=== PATIENT | male | born 1960 ===

== ENCOUNTER 2024-04-22 15:12 | Emergency (ER) | payer MEDICARE ==
[~2024-04-22] VITALS: Ht 172.7 cm; Wt 73.2 kg
[~2024-04-22 15:12] MED LIST: CETI-450 PO; FOLI-130 PO; LEVE250T81 PO; MULT-1303 PO; OMEP20 PO; THIA100T80 PO
[2024-04-22 15:50] VITALS: TEMP 97.8
[2024-04-22 16:13] LABS: APPEARANCE,URINE CLEAR (CLEAR); BILIRUBIN,URINE NEGATIVE (NEGATIVE); COLOR,URINE COLORLESS (YELLOW); GLUCOSE, URINE (UA) NEGATIVE (NEGATIVE); LEUKOCYTE ESTERASE ,URINE NEGATIVE (NEGATIVE); NITRATE,URINE NEGATIVE (NEGATIVE); OCCULT BLOOD,URINE NEGATIVE (NEGATIVE); PROTEIN,URINE NEGATIVE (NEGATIVE); SPECIFIC GRAVITIY, URINE 1.005 (1.003-1.030); UROBILINOGEN,URINE <=1.0 mg/dL (<=1.0)
[2024-04-22 16:23] LABS: ALCOHOL, URINE DRUG SCREEN POSITIVE (NEGATIVE); AMPHET/METH SCREEN,URINE POSITIVE (NEGATIVE); BARBITURATE SCREEN, URINE NEGATIVE (NEGATIVE); BENZODIAZEPINES SCREEN,URINE POSITIVE (NEGATIVE); CANNABINOID SCREEN,URINE POSITIVE (NEGATIVE); COCAINE SCREEN,URINE NEGATIVE (NEGATIVE); METHADONE SCREEN, URINE NEGATIVE (NEGATIVE); OPIATE SCREEN,URINE NEGATIVE (NEGATIVE); PHENCYCLIDINE SCREEN,URINE NEGATIVE (NEGATIVE)
[2024-04-22 16:42] LABS: BASOPHILS % (AUTO) 0.7 % (0.0-2.0); EOSINOPHILS % (AUTO) 4.2 % (1.0-6.0); HEMATOCRIT 42.5 % (41-53); HEMOGLOBIN 13.9 g/dL (13.5-17.5); LYMPHOCYTES # (AUTO) 2.1 K/uL (1.0-4.8); LYMPHOCYTES % (AUTO) 22.9 % (22.0-44.0); MEAN CORPUSCULAR HEMOGLOBIN 32.9 pg (26.0-34.0); MEAN CORPUSCULAR HGB CONC 32.8 G/dL (31.0-37.0); MEAN CORPUSCULAR VOLUME 101 fL (80-100); MONOCYTES # (AUTO) 0.8 K/uL (0.1-1.0); MONOCYTES % (AUTO) 8.8 % (2.0-9.0); NEUTROPHILS # (AUTO) 5.8 K/uL (1.8-7.7); NEUTROPHILS % (AUTO) 63.4 % (40.0-70.0); PLATELET COUNT (AUTO) 246 K/uL (150-450); RED BLOOD CELL COUNT(AUTO) 4.23 MIL/uL (4.50-5.90); RED CELL DISTRIBUTION WIDTH 13.8 % (11.5-14.5); WHITE BLOOD COUNT (AUTO) 9.2 K/uL (4.5-11.0)
[2024-04-22 16:54] LABS: ANION GAP 13 mmol/L (8-16); CALCIUM, TOTAL 8.8 mg/dL (8.8-10.5); CARBON DIOXIDE 22 mmol/L (22-29); CHLORIDE 99 mmol/L (98-107); CREATININE 0.56 mg/dL (0.60-1.30); GLOMERULAR FILTR. RATE CALC > 60 mL/min (>60); GLUCOSE,RANDOM 75 mg/dL (70-110); POTASSIUM 4.1 mmol/L (3.5-5.1); SODIUM SERUM 134 mmol/L (136-145); UREA NITROGEN, BLOOD 3 mg/dL (7-18)
[2024-04-22 16:58] LABS: ALCOHOL, BLOOD (SERUM) 145 mg/dL (0-10)
[2024-04-22] MEDS: SODIUM CHLORIDE 0.9% 1,000 ML IV ONE (17:35)
[2024-04-22] MEDS: LevETIRAcetam 500 MG TABLET PO ONE (17:35)
[2024-04-22] MEDS: METHOCARBAMOL 500 MG TABLET PO ONE (23:02)
[2024-04-22] MEDS: ACETAMINOPHEN 325 MG TABLET PO ONE (23:25)
[2024-04-22 23:28] VITALS: BP 124/79; PULSE 76; RESP 18; O2SAT 100
== END 2024-04-23 | disposition home or self-care (01) ==
LOC: EMS 15:12
DX: G40.909 Epilepsy, unspecified, not intractable, without status epilepticus (principal); F10.129 Alcohol abuse with intoxication, unspecified; K21.9 Gastro-esophageal reflux disease without esophagitis; Z86.73 Personal history of transient ischemic attack (TIA), and cerebral infarction without residual deficits; Y90.6 Blood alcohol level of 120-199 mg/100 ml
CPT/HCPCS: 80048; 80307; 81003; 85025; 96360; 99284; G0480; J7030; 36415-L1; 36415-TC

== ENCOUNTER 2024-06-12 16:34 | Inpatient (IN) | payer MEDICARE ==
[~2024-06-12] VITALS: Ht 170.2 cm; Wt 73.6 kg
[2024-06-12] MEDS ORDERED: LORazepam 2 MG/ML VIAL ONE (18:06)
[2024-06-12] MEDS ORDERED: DiphenhydrAMINE HCL 50 MG/ML VIAL ONE (18:06)
[2024-06-12] MEDS ORDERED: HALOPERIDOL LACTATE 5 MG/ML VIAL ONE (18:07)
[2024-06-12] MEDS: HALOPERIDOL LACTATE 5 MG/ML VIAL IM ONE (18:17)
[2024-06-12] MEDS: LORazepam 2 MG/ML VIAL IM ONE (18:17)
[2024-06-12] MEDS: DiphenhydrAMINE HCL 50 MG/ML VIAL IM ONE (18:17)
[2024-06-12 19:31] LABS: COVID AG,FIA SOURCE NASAL SWAB
[2024-06-12 19:54] LABS: SARS-COV2 (COVID) ANTIGEN,FIA Negative (Negative)
[2024-06-12] MEDS ORDERED: MAGNESIUM HYDROXIDE SUSPENSION 30 ML UDCUP PO PRN (21:45)
[2024-06-12] MEDS ORDERED: HALOPERIDOL 5 MG TABLET PO PRN (21:45)
[2024-06-12] MEDS ORDERED: MAG HYDROX/ALUMINUM HYD/SIMETH ES 30 ML SUSPENSION UDCUP PO PRN (21:45)
[2024-06-12] MEDS ORDERED: LOPERAMIDE HCL 2 MG CAPSULE PO PRN (21:45)
[2024-06-12] MEDS ORDERED: ACETAMINOPHEN 325 MG TABLET PO PRN (21:45)
[2024-06-12 22:39] LABS: BASOPHILS % (AUTO) 0.3 % (0.0-2.0); EOSINOPHILS % (AUTO) 2.4 % (1.0-6.0); HEMATOCRIT 43.8 % (41-53); HEMOGLOBIN 14.3 g/dL (13.5-17.5); LYMPHOCYTES # (AUTO) 4.1 K/uL (1.0-4.8); LYMPHOCYTES % (AUTO) 45.4 % (22.0-44.0); MEAN CORPUSCULAR HEMOGLOBIN 30.1 pg (26.0-34.0); MEAN CORPUSCULAR HGB CONC 32.5 G/dL (31.0-37.0); MEAN CORPUSCULAR VOLUME 92 fL (80-100); MONOCYTES # (AUTO) 0.9 K/uL (0.1-1.0); MONOCYTES % (AUTO) 10.1 % (2.0-9.0); NEUTROPHILS # (AUTO) 3.8 K/uL (1.8-7.7); NEUTROPHILS % (AUTO) 41.8 % (40.0-70.0); PLATELET COUNT (AUTO) 219 K/uL (150-450); RED BLOOD CELL COUNT(AUTO) 4.75 MIL/uL (4.50-5.90); RED CELL DISTRIBUTION WIDTH 14.6 % (11.5-14.5); WHITE BLOOD COUNT (AUTO) 9.1 K/uL (4.5-11.0)
[2024-06-12 22:46] LABS: ANION GAP 13 mmol/L (8-16); CALCIUM, TOTAL 8.2 mg/dL (8.8-10.5); CARBON DIOXIDE 25 mmol/L (22-29); CHLORIDE 108 mmol/L (98-107); CREATININE 0.82 mg/dL (0.60-1.30); GLOMERULAR FILTR. RATE CALC > 60 mL/min (>60); GLUCOSE,RANDOM 91 mg/dL (70-110); POTASSIUM 4.1 mmol/L (3.5-5.1); SODIUM SERUM 146 mmol/L (136-145); UREA NITROGEN, BLOOD 8 mg/dL (7-18)
[2024-06-12 23:59] LABS: PH,URINE DRUG SCREEN 5.5 (5.0-8.0)
[2024-06-13 00:06] LABS: AMPHET/METH SCREEN,URINE NEGATIVE (NEGATIVE); BARBITURATE SCREEN, URINE NEGATIVE (NEGATIVE); BENZODIAZEPINES SCREEN,URINE NEGATIVE (NEGATIVE); CANNABINOID SCREEN,URINE POSITIVE (NEGATIVE); COCAINE SCREEN,URINE NEGATIVE (NEGATIVE); METHADONE SCREEN, URINE NEGATIVE (NEGATIVE); OPIATE SCREEN,URINE NEGATIVE (NEGATIVE); PHENCYCLIDINE SCREEN,URINE NEGATIVE (NEGATIVE)
[2024-06-13 00:08] LABS: ALCOHOL, URINE DRUG SCREEN POSITIVE (NEGATIVE)
[2024-06-13 02:57] VITALS: O2SAT 98
[2024-06-13 05:22] VITALS: BP 137/101; PULSE 97; RESP 18; TEMP 98.6; O2SAT 99
[2024-06-13] MEDS: THIAMINE 100 MG TABLET PO SCH (08:39)
[2024-06-13] MEDS: FOLIC ACID 1 MG TABLET PO SCH (08:40)
[2024-06-13] MEDS: CETIRIZINE HCL 10 MG TABLET PO SCH (08:40)
[2024-06-13] MEDS: LevETIRAcetam 250 MG TABLET PO SCH (08:40)
[2024-06-13] MEDS: MULTIVITAMINS WITH MINERALS, THERAPEUTIC TABLET PO SCH (08:42)
[2024-06-13] MEDS: OMEPRAZOLE 20 MG CAPSULE PO SCH (08:42)
[2024-06-13] MEDS: BACITRACIN 28 GM OINTMENT TP SCH (08:44)
[2024-06-13 08:47] VITALS: BP 129/83; PULSE 96; TEMP 98.3; O2SAT 97
[2024-06-13 20:24] VITALS: BP 123/62; PULSE 77; RESP 19; TEMP 97.8; O2SAT 96
[2024-06-14 09:00] VITALS: BP 145/86; PULSE 72; RESP 18; TEMP 98.6; O2SAT 98
[2024-06-14 20:20] VITALS: BP 131/75; PULSE 78; RESP 18; TEMP 97.3; O2SAT 98
[2024-06-14] MEDS: LORazepam 2 MG TABLET PO PRN (21:38)
[2024-06-14] MEDS: ZOLPIDEM TARTRATE 10 MG TABLET PO PRN (21:39)
[2024-06-15 10:39] VITALS: BP 105/76; PULSE 91; RESP 18; TEMP 98.1; O2SAT 96
[2024-06-15] MEDS ORDERED: OMEP20 PO (11:33)
[2024-06-15] MEDS ORDERED: LEVE250T81 PO (11:33)
[2024-06-15] MEDS ORDERED: CETI-450 PO (11:33)
== END 2024-06-15 16:10 | disposition home or self-care (01) | DRG 885 ==
LOC: EMS 16:34 → 3EX 06-13 04:10 → UNDOADMIN 06-13 04:15
PROVIDERS: ADMIT Psychiatry & Neurology Psychiatry; ATTEND Psychiatry & Neurology Psychiatry
PROC: GZHZZZZ Group Psychotherapy (ICD-10-PCS; principal; 2024-06-13)
DX: F32.2 Major depressive disorder, single episode, severe without psychotic features (principal); R45.851 Suicidal ideations; E87.1 Hypo-osmolality and hyponatremia; G40.909 Epilepsy, unspecified, not intractable, without status epilepticus; D64.9 Anemia, unspecified; Z20.822 Contact with and (suspected) exposure to COVID-19; J30.9 Allergic rhinitis, unspecified; F10.120 Alcohol abuse with intoxication, uncomplicated; K21.9 Gastro-esophageal reflux disease without esophagitis; Y90.8 Blood alcohol level of 240 mg/100 ml or more; Z87.820 Personal history of traumatic brain injury
CPT/HCPCS: 80048; 80307; 85025; 99285; G0378; G0480; J1200; J1630; J2060